=== PATIENT | female | born 1995 | race Caucasian/White ===

== ENCOUNTER 2017-04-05 23:34 | Emergency (ER) | payer OTHER ==
[~2017-04-05] VITALS: Ht 157.5 cm; Wt 55.8 kg
[2017-04-06] MEDS ORDERED: IOHEXOL 300 MG/ML 75 ML VIAL. IV ONE (00:45)
[2017-04-06 01:37] LABS: BASO # 0.1 x10^3/uL (0.0-0.2); BASO % 1 % (0-3); EOS # 0.2 x10^3/uL (0.0-0.7); EOS % 2 % (0-3); HEMATOCRIT 39.1 % (36.0-47.0); HEMOGLOBIN 13.5 g/dL (12.0-15.5); LYMPH # 3.2 x10^3/uL (1.0-4.8); LYMPH % 36 % (24-48); MEAN CORPUSCULAR HEMOGLOBIN 30 pg (25-35); MEAN CORPUSCULAR HGB CONC 35 g/dL (31-37); MEAN CORPUSCULAR VOLUME 87 fL (79-100); MONO % 11 % (0-9); NEUT # 4.4 x10^3uL (1.8-7.7); NEUT % 50 % (31-73); PLATELET COUNT 309 x10^3/uL (140-400); RED BLOOD COUNT 4.48 x10^6/uL (3.50-5.40); RED CELL DISTRIBUTION WIDTH 12.4 % (11.5-14.5); WHITE BLOOD COUNT 8.8 x10^3/uL (4.0-11.0)
[2017-04-06 01:43] LABS: BACTERIA,URINE FEW /HPF (0-FEW); BILIRUBIN,URINE NEG (NEG); CLARITY,URINE CLOUDY; COLOR,URINE YELLOW; GLUCOSE,URINE NEG (NEG); NITRITE,URINE NEG (NEG); RBC,URINE RARE /HPF (0-2); UROBILINOGEN,URINE 0.2 mg/dL (0.2 mg/dL)
[2017-04-06 01:44] LABS: AMORPHOUS SEDIMENT,UR PRESENT /HPF; SQUAMOUS EPITHELIAL CELL,UR MANY /LPF
[2017-04-06] MEDS: CONTRAST GIVEN MC PRN (01:44)
[2017-04-06 01:50] LABS: ALBUMIN 3.9 g/dL (3.4-5.0); CREATININE 0.8 mg/dL (0.6-1.0); GFR 89.7; POTASSIUM 3.6 mmol/L (3.5-5.1); TOTAL BILIRUBIN 0.3 mg/dL (0.2-1.0); TOTAL PROTEIN 7.8 g/dL (6.4-8.2)
[2017-04-06] MEDS ORDERED: IV NORMAL SALINE 1,000ML 1,000 ML IV ONE (02:30)
[2017-04-06] MEDS ORDERED: ONDANSETRON PF 4 MG/2 ML VIAL. IV ONE (02:30)
[2017-04-06] MEDS ORDERED: KETOROLAC 30 MG/ML VIAL. IV ONE (02:30)
--- NOTE | 2017-04-06 02:57 | RAD ---
INDICATION: RLQ and Umbilical abdominal pain x 1 week, n/v, diarrhea
no hx of abd sx's,no past medical hx
Gave Omni 300 75ml IV - tolerated well
No previous for comparison COMPARISON: None. TECHNIQUE: Axial CT images were obtained through the abdomen and pelvis with intravenous contrast. One or more of the following individualized dose reduction techniques were utilized for this examination: 1. Automated exposure control; 2. Adjustment of the mA and/or kV according to patient size; 3. Use of iterative reconstruction technique. FINDINGS: Chest Base: Partially imaged without gross abnormality. Vessels: No abdominal aortic aneurysm. Liver/Biliary: Low-attenuation of liver adjacent to falciform ligament. Commonly from focal fatty infiltration. No intrahepatic bile duct dilation. Pancreas: No peripancreatic edema. Spleen: Normal. Kidneys/Adrenal: Subcentimeter low-density lesion suspected within right kidney. Typically benign in a patient of this age. No hydronephrosis. Bladder: Partially distended GI: Free fluid is seen within the pelvis. The proximal aspect of the appendix is visualized without definite dilatation. The distal aspect of the appendix measures up to about 6-7 mm. There are multiple loops of bowel adjacent to the appendiceal tip therefore difficult to assess whether there is any adjacent inflammation. IMPRESSION: 1. The proximal appendix does not have any adjacent inflammation. More distally the appendix measures up to 6-7 mm which is borderline dilated. There are multiple loops of bowel surrounding the tip of the appendix therefore difficult to tell if there is any adjacent inflammation at the appendiceal tip. Given these borderline findings this examination is equivocal for the diagnosis of appendicitis. If unclear clinically and further workup options are desired a follow-up CT could be obtained at a later time to assess whether there is further increase in size of the appendix or development of definitive adjacent inflammation. 2. Free fluid is seen within the pelvis which is more than typically seen. 3. No evidence of bowel obstruction. 4. No evidence of hydronephrosis. 5. There is some fullness of the right adnexa with some adjacent free fluid. Cannot exclude inflammation to the right adnexal region. If more complete characterization is desired ultrasound could be helpful. Electronically signed by: Stan Lamb MD (04/06/2017 2:54 AM) [facility]
[2017-04-06] MEDS ORDERED: IPRATRPIUM/ALBUTEROL 0.5/2.5MG 3 ML NEBU. ONE (02:59)
[2017-04-06 04:30] VITALS: BP 124/91
[2017-04-06] MEDS ORDERED: MORPHINE SULFATE 4 MG/ML DISP.SYRIN. ONE (04:40)
--- NOTE | 2017-04-06 04:40 | PHYS DOC ---
Past History Past Medical History: No Pertinent History Past Surgical History: No Surgical History Alcohol Use: Occasionally Drug Use: None Adult General Chief Complaint Chief Complaint: NAUSEA/VOMITING/DIARRHEA HPI HPI Patient is a 21 year old female who presents with abdominal pain & vomiting. The patient reports 1 week history of vomiting, three episodes today, now with lower abdominal pain. She denies fevers/chills, hematemesis, diarrhea, constipation, dysuria, hematuria, vaginal bleeding/discharge. She denies medical history or abdominal surgeries. She is sexually active with women, denies concern for STD. She is visiting from [place] & plans to go home later this week. Review of Systems Review of Systems Constitutional: Denies fever or chills Eyes: Denies change in visual acuity HENT: Denies nasal congestion or sore throat Respiratory: Denies cough or shortness of breath Cardiovascular: Denies chest pain or edema GI: Reports abdominal pain, nausea, vomiting, denies diarrhea : Denies dysuria or hematuria Musculoskeletal: Denies back pain or joint pain Integument: Denies rash or skin lesions Neurologic: Denies headache, focal weakness or sensory changes All other systems were reviewed and found to be within normal limits, except as documented in this note. Current Medications Current Medications Current Medications Medications (Trade) Dose Ordered Sig/Arabella Start Time Stop Time Status Last Admin Dose Admin Albuterol/ Ipratropium (Duoneb) 3 ml STK-MED ONCE 04/06/17 02:59 04/06/17 03:00 DC Fentanyl Citrate (Fentanyl 2ml Vial) 50 mcg PRN Q15MIN PRN 04/06/17 04:15 04/07/17 04:14 04/06/17 04:20 50 MCG Info (Do NOT chart on this entry -- for MONITORING) 1 each PRN DAILY PRN 04/06/17 00:45 04/08/17 00:44 04/06/17 01:44 1 EACH Iohexol (Omnipaque 300 Mg/ml) 75 ml 1X ONCE 04/06/17 00:45 04/06/17 00:46 DC 04/06/17 01:44 75 ML Ketorolac Tromethamine (Toradol) 30 mg 1X ONCE 04/06/17 02:30 04/06/17 02:36 DC 04/06/17 02:20 30 MG Ondansetron HCl (Zofran) 4 mg 1X ONCE 04/06/17 02:30 04/06/17 02:36 DC 04/06/17 02:20 4 MG Sodium Chloride 1,000 ml @ 1,000 mls/hr 1X ONCE 04/06/17 02:30 04/06/17 03:29 DC 04/06/17 02:21 1,000 MLS/HR Allergies Allergies Allergies Coded Allergies Type Severity Reaction Last Updated Verified No Known Drug Allergies 04/06/17 No Physical Exam Physical Exam Constitutional: Well developed, well nourished, no acute distress, non-toxic appearance. HENT: Normocephalic, atraumatic, bilateral external ears normal, oropharynx moist, nose normal. Eyes: conjunctiva normal, no discharge. Neck: supple, no stridor. Cardiovascular: RRR, no murmurs, no edema. Lungs & Thorax: LCTAB, no wheezing, no respiratory distress. Abdomen: soft, right lower quadrant tenderness is present with voluntary guarding & rebound tenderness, nondistended. : normal appearing female external genitalia, normal appearing cervix with closed os, small amount of white discharge in vaginal vault, no CMT, right adnexal tenderness, no left adnexal tenderness, no adnexal mass appreciated. Skin: Warm, dry, no erythema, no rash. Back: No CVA tenderness. Extremities: No tenderness, no edema. Neurologic: Alert and oriented X 3, no focal deficits noted. Psychologic: Affect normal, judgement normal, mood normal. Current Patient Data Vital Signs Vital Signs Date Time Temp Pulse Resp B/P (MAP) Pulse Ox O2 Delivery O2 Flow Rate FiO2 04/06/17 01:45 97.9 65 15 160/62 (94) 97 Room Air Lab Results Laboratory Tests Test 04/06/17 00:54 04/06/17 01:24 04/06/17 02:13 Urine Collection Type Unknown Urine Color Yellow Urine Clarity Cloudy Urine pH 6.0 Urine Specific [place] 1.020 Urine Protein Neg (NEG-TRACE) Urine Glucose (UA) Neg mg/dL (NEG) Urine Ketones (Stick) Trace mg/dL (NEG) Urine Blood Neg (NEG) Urine Nitrite Neg (NEG) Urine Bilirubin Neg (NEG) Urine Urobilinogen Dipstick 0.2 mg/dL (0.2 mg/dL) Urine Leukocyte Esterase Trace (NEG) Urine RBC Rare /HPF (0-2) Urine WBC 1-4 /HPF (0-4) Urine Squamous Epithelial Cells Many /LPF Urine Amorphous Sediment Present /HPF Urine Bacteria Few /HPF (0-FEW) Urine Mucus Slight /LPF White Blood Count 8.8 x10^3/uL (4.0-11.0) Red Blood Count 4.48 x10^6/uL (3.50-5.40) Hemoglobin 13.5 g/dL (12.0-15.5) Hematocrit 39.1 % (36.0-47.0) Mean Corpuscular Volume 87 fL (79-100) Mean Corpuscular Hemoglobin 30 pg (25-35) Mean Corpuscular Hemoglobin Concent 35 g/dL (31-37) Red Cell Distribution Width 12.4 % (11.5-14.5) Platelet Count 309 x10^3/uL (140-400) Neutrophils (%) (Auto) 50 % (31-73) Lymphocytes (%) (Auto) 36 % (24-48) Monocytes (%) (Auto) 11 % (0-9) H Eosinophils (%) (Auto) 2 % (0-3) Basophils (%) (Auto) 1 % (0-3) Neutrophils # (Auto) 4.4 x10^3uL (1.8-7.7) Lymphocytes # (Auto) 3.2 x10^3/uL (1.0-4.8) Monocytes # (Auto) 1.0 x10^3/uL (0.0-1.1) Eosinophils # (Auto) 0.2 x10^3/uL (0.0-0.7) Basophils # (Auto) 0.1 x10^3/uL (0.0-0.2) Sodium Level 141 mmol/L (136-145) Potassium Level 3.6 mmol/L (3.5-5.1) Chloride Level 105 mmol/L (98-107) Carbon Dioxide Level 29 mmol/L (21-32) Anion Gap 7 (6-14) Blood Urea Nitrogen 14 mg/dL (7-20) Creatinine 0.8 mg/dL (0.6-1.0) Estimated GFR (Cockcroft-Gault) 89.7 BUN/Creatinine Ratio 18 (6-20) Glucose Level 92 mg/dL (70-99) Calcium Level 9.0 mg/dL (8.5-10.1) Total Bilirubin 0.3 mg/dL (0.2-1.0) Aspartate Amino Transferase (AST) 16 U/L (15-37) Alanine Aminotransferase (ALT) 17 U/L (14-59) Alkaline Phosphatase 70 U/L (46-116) Total Protein 7.8 g/dL (6.4-8.2) Albumin 3.9 g/dL (3.4-5.0) Albumin/Globulin Ratio 1.0 (1.0-1.7) POC Urine HCG, Qualitative hcg negative (Negative) EKG EKG [] Radiology/Procedures Radiology/Procedures PROCEDURE: CT ABD PELV W/ IV CONTRST ONLY INDICATION: RLQ and Umbilical abdominal pain x 1 week, n/v, diarrhea
no hx of abd sx's,no past medical hx
Gave Omni 300 75ml IV - tolerated well
No previous for comparison COMPARISON: None. TECHNIQUE: Axial CT images were obtained through the abdomen and pelvis with intravenous contrast. One or more of the following individualized dose reduction techniques were utilized for this examination: 1. Automated exposure control; 2. Adjustment of the mA and/or kV according to patient size; 3. Use of iterative reconstruction technique. FINDINGS: Chest Base: Partially imaged without gross abnormality. Vessels: No abdominal aortic aneurysm. Liver/Biliary: Low-attenuation of liver adjacent to falciform ligament. Commonly from focal fatty infiltration. No intrahepatic bile duct dilation. Pancreas: No peripancreatic edema. Spleen: Normal. Kidneys/Adrenal: Subcentimeter low-density lesion suspected within right kidney. Typically benign in a patient of this age. No hydronephrosis. Bladder: Partially distended GI: Free fluid is seen within the pelvis. The proximal aspect of the appendix is visualized without definite dilatation. The distal aspect of the appendix measures up to about 6-7 mm. There are multiple loops of bowel adjacent to the appendiceal tip therefore difficult to assess whether there is any adjacent inflammation. IMPRESSION: 1. The proximal appendix does not have any adjacent inflammation. More distally the appendix measures up to 6-7 mm which is borderline dilated. There are multiple loops of bowel surrounding the tip of the appendix therefore difficult to tell if there is any adjacent inflammation at the appendiceal tip. Given these borderline findings this examination is equivocal for the diagnosis of appendicitis. If unclear clinically and further workup options are desired a follow-up CT could be obtained at a later time to assess whether there is further increase in size of the appendix or development of definitive adjacent inflammation. 2. Free fluid is seen within the pelvis which is more than typically seen. 3. No evidence of bowel obstruction. 4. No evidence of hydronephrosis. 5. There is some fullness of the right adnexa with some adjacent free fluid. Cannot exclude inflammation to the right adnexal region. If more complete characterization is desired ultrasound could be helpful. Electronically signed by: Ally Pan MD (04/06/2017 2:54 AM) [facility] DICTATED AND SIGNED BY: ALLY PAN MD DATE: 04/06/17223 [] Course & Med Decision Making Course & Med Decision Making Pertinent Labs and Imaging studies reviewed. (See chart for details) The patient presents with vomiting & right lower quadrant abdominal pain. Afebrile here, WBC is within normal limits, UA unremarkable, UCG negative. Obtained CT abdomen/pelvis which is equivocal for appendicitis. There was also ovarian fullness noted on this exam. She requires transfer for surgical evaluation, & anticipate that pelvic ultrasound can be performed upon arrival as surgical scrub tech is not on site at this time. Discussed with Dr. Wiley of general surgery who agrees to consult. Will hold antibiotics at this time. Discussed with Dr. Rose who agrees to accept transfer for admission. Patient' s pain increased significantly while awaiting transfer, EMS has already been called & nurse calling report, but I gave verbal order to jorge Todd at [place], so that she can have stat pelvic ultrasound upon arrival to [place]. The patient is being transferred in stable condition. [] Dragon Disclaimer Dragon Disclaimer This electronic medical record was generated, in whole or in part, using a voice recognition dictation system. Departure Departure: Impression: Primary Impression: Abdominal pain Additional Impression: Right adnexal tenderness Disposition: XFER OTHER Condition: STABLE Referrals: PCP,UNKNOWN (PCP) Problem Qualifiers EDEL MARKS MD Apr 06, 2017 04:40
[2017-04-06] MEDS ORDERED: MORPHINE SULFATE 4 MG/ML DISP.SYRIN. IV ONE (05:00)
[2017-04-07 23:13] LABS: CHLAMYDIA PROBE Negative (Negative)
== END 2017-04-06 05:20 | disposition short-term general hospital (02) ==
LOC: ER 23:34
DX: R10.2 Pelvic and perineal pain (principal); R11.2 Nausea with vomiting, unspecified
CPT/HCPCS: 36415; 74177; 80053; 81001; 81025; 85025; 87086; 87491; 87591; 96361; 96374; 96375; 99285; J1885; J2270; J2405; J3010; Q0111; Q9967; J7030